=== PATIENT | male | born 1985 | race Caucasian/White ===

== ENCOUNTER 2022-02-04 07:22 | Outpatient (REF) | payer MEDICAID, SELFPAY ==
[2022-02-04 07:43] LABS: MANUAL DIFF FLAG NO
[2022-02-04 08:21] LABS: Basophils Percent Auto 0.3 % (0-2); Hematocrit 42.6 % (42.0-52.0); Hemoglobin 14.5 g/dl (14.0-18.0); Imm Gran Abs Auto 0.01 X10*3/uL (0.00-0.03); Imm Gran Pct Auto 0.3 % (0.0-0.4); Lymphocytes Absolute Auto 0.8 X10*3/uL (1.2-4.9); Mean Corpuscular Hemoglobin 27.8 pg (27.0-33.0); Mean Corpuscular Volume 81.8 fL (80.0-98.0); Mean Platelet Volume 10.8 fL (9.4-12.4); Monocytes Absolute Auto 0.4 X10*3/uL (0.1-1.2); Monocytes Percent Auto 13.7 % (2-11); Neutrophils Absolute Auto 1.7 x10*3/uL (2.0-8.3); Neutrophils Percent Auto 58.7 % (45-73); Platelet Count 175 X10*3/uL (160-400); Red Blood Count 5.21 X10*6/uL (4.60-5.80); Red Cell Distribution Width 12.4 % (11.0-16.0); White Blood Count 2.9 X10*3/uL (4.8-10.8)
[2022-02-04 08:43] LABS: Alanine Aminotransferase 22 U/L (0-40); Albumin Level 4.5 g/dL (3.5-5.0); Alkaline Phosphatase 78 U/L (39-117); Anion Gap 15 (12-20); Aspartate Amino Transferase 17 U/L (5-37); Bilirubin Total 0.4 mg/dL (0.0-1.0); Blood Urea Nitrogen 19 mg/dL (9-16); Calcium 9.5 mg/dL (8.4-10.2); Carbon Dioxide 23 mmol/L (22-29); Chloride 106 mmol/L (96-108); Estimated Glomerular Filt Rate > 60; Glucose Random 95 mg/dL (60-115); Potassium 3.7 mmol/L (3.3-5.1); Sodium 140 mmol/L (135-145); Total Protein 7.4 g/dL (6.5-8.0)
[2022-02-04 09:04] LABS: Thyroid Stimulating Hormone 0.88 uIU/mL (0.32-4.0)
[2022-02-04 09:15] LABS: Valproate 29.5 mcg/mL (50.0-100.0)
== END 2022-02-04 07:23 | disposition home or self-care (01) ==
LOC: HO.LAB 07:22
PROVIDERS: Visit Provider Nurse Practitioner Psychiatric/Mental Health
DX: F31.32 Bipolar disorder, current episode depressed, moderate (principal); Z79.899 Other long term (current) drug therapy
CPT/HCPCS: 36415; 80053; 80164; 84443; 85025

== ENCOUNTER 2022-02-10 13:10 | Outpatient (REF) | payer MEDICAID, SELFPAY ==
[2022-02-10 14:56] LABS: Alanine Aminotransferase 20 U/L (0-40); Albumin Level 4.6 g/dL (3.5-5.0); Alkaline Phosphatase 80 U/L (39-117); Anion Gap 15 (12-20); Aspartate Amino Transferase 17 U/L (5-37); Bilirubin Total 0.5 mg/dL (0.0-1.0); Blood Urea Nitrogen 18 mg/dL (9-16); Calcium 9.8 mg/dL (8.4-10.2); Carbon Dioxide 23 mmol/L (22-29); Chloride 105 mmol/L (96-108); Estimated Glomerular Filt Rate > 60; Glucose Random 90 mg/dL (60-115); Sodium 139 mmol/L (135-145); Total Protein 7.5 g/dL (6.5-8.0)
== END 2022-02-10 13:11 | disposition home or self-care (01) ==
LOC: HO.LAB 13:10
PROVIDERS: Visit Provider Nurse Practitioner Psychiatric/Mental Health
DX: F31.32 Bipolar disorder, current episode depressed, moderate (principal)
CPT/HCPCS: 36415; 80053; 84449

== ENCOUNTER 2022-02-11 13:54 | Outpatient (REF) | payer MEDICAID, SELFPAY ==
[2022-02-11 14:08] LABS: MANUAL DIFF FLAG NO
[2022-02-11 14:41] LABS: Hematocrit 40.2 % (42.0-52.0); Hemoglobin 14.3 g/dl (14.0-18.0); Imm Gran Abs Auto 0.02 X10*3/uL (0.00-0.03); Imm Gran Pct Auto 0.6 % (0.0-0.4); Lymphocytes Absolute Auto 0.7 X10*3/uL (1.2-4.9); Lymphocytes Percent Auto 20.8 % (20-40); Mean Corpuscular HGB Conc 35.6 g/dl (31.0-36.0); Mean Corpuscular Hemoglobin 29.1 pg (27.0-33.0); Mean Corpuscular Volume 81.9 fL (80.0-98.0); Monocytes Absolute Auto 0.4 X10*3/uL (0.1-1.2); Monocytes Percent Auto 10.4 % (2-11); Neutrophils Absolute Auto 2.4 x10*3/uL (2.0-8.3); Neutrophils Percent Auto 68.2 % (45-73); Platelet Count 192 X10*3/uL (160-400); Red Blood Count 4.91 X10*6/uL (4.60-5.80); Red Cell Distribution Width 12.5 % (11.0-16.0); White Blood Count 3.5 X10*3/uL (4.8-10.8)
== END 2022-02-11 13:55 | disposition home or self-care (01) ==
LOC: HO.LAB 13:54
PROVIDERS: Visit Provider Nurse Practitioner Psychiatric/Mental Health
DX: F31.32 Bipolar disorder, current episode depressed, moderate (principal)
CPT/HCPCS: 36415; 85025

== ENCOUNTER 2022-02-17 09:15 | Outpatient (RCR) | payer OTHER, SELFPAY ==
[2022-01-26 12:30] VITALS: BP 128/70; PULSE 88; TEMP 36.1
[2022-01-26 13:58] VITALS: BMI 30.4
[2022-01-26 15:57] LABS: Amphetamine Screen Urine Not Detected (Not Detect); Barbiturates, Urine Not Detected (Not Detect); Benzodiazepines Screen Urine Not Detected (Not Detect); Cannabinoid Screen Urine Not Detected (Not Detect); Cocaine Screen Urine Not Detected (Not Detect); Fentanyl, urine Not Detected (Not Detect); Opiate Screen Urine Not Detected (Not Detect); Phencyclidine Screen Urine Not Detected (Not Detect)
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
--- NOTE | 2022-01-29 08:10 | HO.PHPIOP ---
Case opened in treatment team
--- NOTE | 2022-01-29 09:57 | PC.NURSE ---
Alcon called out sick today. He reports he has been vomiting all night. I called Alcon to f/u. Alcon stated he has not vomited in several hours. He is resting today. I advised Alcon to call his doctor if symptoms do not improve and to drink fluids. He hopes to feel better by Tuesday and return to the program.
--- NOTE | 2022-02-02 15:52 | P.PNPSP_ITS ---
Subjective Subjective Date of Service: 02/02/22 Reason For Visit: bipolar,OCD,ADHD Medical Problems Affecting Mental Status: No Interim History: Reports overall mood is improving, although continues with some depression. Continues feeling some depression at bedtime, relates this to missing his partner. Continues with nightmares, feels prazosin not helping. Completed MD Q questionnaire regarding possibility of bipolar disorder. Has gained some coping skills while in this program, reports that he feels more self-confident. Medication Compliance: Yes Side effects from medications: No Review of Systems Acute medical concerns: No Medical Review of Systems: unchanged Review of Systems Review of Systems Yes all other systems are reviewed and are negative Constitutional: Reports no additional constitutional complaints Mental Status Exam Mental Status Exam Narrative: NAD. No AH/VH, no SI/HI. Patient Appearance: Appropriate Patient Orientation: Person, Place, Time and Situation Level of Consciousness: Appropriate Patient Behavior: Cooperative and Good Eye Contact Mood Description: Depressed Affect Description: Depressed and Anxious Patient Cognition Impaired: No Ability to Follow Directions: Good Speech Pattern: Appropriate Memory Description: Intact Hallucinations: None Delusions: Not Present Thought Process: Intact Thought Content: positive for Intact Depressive Symptoms: Increased Anxiety, Difficulty Sleeping, Loss of Int. in Activity, Feelings of Guilt, Increased Fatigue, Loss of Energy and Difficulty Concentrating Judgement: Fair Diagnostics Vital Signs (24Hr): BMI result Body Mass Index 30.4 Assessment & Plan Assessment & Plan (1) Bipolar disorder, current episode depressed, moderate: Status: Acute Code(s): F31.32 - Bipolar disorder, current episode depressed, moderate Assessment and Plan: Reports overall mood is improving, although continues with some depression. Continues feeling some depression at bedtime, relates this to missing his partner. Continues with nightmares, feels prazosin not helping. Discussed increasing dose, he was in agreement. Completed MDQ questionnaire regarding possibility of bipolar disorder. We discussed questionnaire in depth. Discussed obtaining Depakote level. Discussed increasing either Depakote or risperidone to help with mood stabilization. Has gained some coping skills while in this program, reports that he feels more self-confident. (2) Opioid use disorder, severe, in sustained remission: Status: Acute Code(s): F11.21 - Opioid dependence, in remission Assessment and Plan: Continues in recovery, no concerns. (3) Mixed obsessional thoughts and acts: Status: Acute Code(s): F42.2 - Mixed obsessional thoughts and acts Assessment and Plan: Continues with obsessional thoughts at times, has been experiencing frequent nightmares where either his fiancee dies or he dies. Plan 1. Continue with current [facility] plan of care. 2. Increase prazosin to 2 mg at bedtime. 3. Labs ordered. 4. Follow-up as per protocol. Patient educated on: diagnosis, medication risk/benefits and therapeutic strategies Informed Consent: understands Reason for contiued partial hosp. stay Substantial Risk for: inability to function, rapid decompensation and med/psych decompensation Certification I certify that partial hospital treatment is medically necessary due to the symptoms and problems resulting from the patient's mental illness and the failure to treat the patient at the partial hospital level of care would likely result in the patient requiring inpatient psychiatric care which could not be prevented at a less intensive level of care. I spent minutes with the patient and/or on the patient floor today, greater than?50% of which was spent counseling/coordinating care. Discharge Plan Discharge Attending provider: Heriberto Jones Medications: New prazosin 2 mg capsule 2 mg PO BEDTIME Qty: 7 0RF Discontinued prazosin 1 mg Capsule 1 mg PO BEDTIME No Action divalproex [Depakote] 250 mg Tablet,Delayed Release (Dr/Ec) 250 mg PO BID clonidine HCl 0.2 mg Tablet 0.2 mg PO BEDTIME buspirone [BuSpar] 30 mg Tablet 30 mg PO BID sertraline [Zoloft] 50 mg Tablet 50 mg PO DAILY risperidone [Risperdal] 1 mg Tablet 0.5 mg PO DAILY Rx Instructions: Take a 1/2 tab in the morning and 1 tab at bedtime. risperidone [Risperdal] 1 mg Tablet 1 mg PO BEDTIME bupropion HCl [Wellbutrin SR] 200 mg Tablet Sustained-Release 12 Hr 200 mg PO DAILY duloxetine [Cymbalta] 20 mg Capsule,Delayed Release(Dr/Ec) 20 mg PO DAILY
--- NOTE | 2022-02-04 13:20 | PC.NURSE ---
Lab results faxed to patient's new PCP XAVIER Gomez and his prescriber Portillo Marie to review and f/u with patient if needed. WBC 2.9, [place] pct auto 13.7, Anc neut 1.7, lympth 0.8, Bun 19, and Depakote level 29.5. PHP prescriber Thania Cavazos CNP discussed lab results with patient. Patient aware lab results will be sent to his providers. Copy of lab results given to patient.
--- NOTE | 2022-02-08 09:42 | HO.PHPIOP ---
The client called out sick. He states that he will be in tomorrow
--- NOTE | 2022-02-10 11:28 | PC.NURSE ---
Repeat labs ordered. Patient aware.
--- NOTE | 2022-02-11 09:42 | PC.NURSE ---
Patient completed repeat lab orders ordered on 02/09/22 on 02/10/22. Reviewed Labs that were ordered with Iris at [facility] lab. CBC ordered but not completed, General chemistry completed. Thania Cavazos NP aware.
--- NOTE | 2022-02-12 09:37 | PC.NURSE ---
I called Alcon's PCP's office at [facility] for the past several days and several times during the day (at times on hold for over 45 minutes) to f/u on the lab results I faxed to the office on 02/04/22. Unable to get a hold of anyone in the office as I have been put on hold and no one is answering the phone. I spoke to Alcon and he stated it is hard to get a hold of anyone in the office. I am currently on hold at present with [facility] awaiting for someone to answer the phone.
--- NOTE | 2022-02-12 09:58 | PC.NURSE ---
Alcon called and left a message he is not feeling well and will not be coming in to the program today. I called Alcon and left him a message to call me back to f/u.
--- NOTE | 2022-02-12 10:23 | PC.NURSE ---
Faxed repeat lab results done on 02/10-02/11/22 to patient's new PCP XAVIER Gomez. WBC 3.5, HCT 40.2, IMgran pct auto 0.6, Lymph abs auto 0.7, BUN 18.
--- NOTE | 2022-02-12 12:49 | PC.NURSE ---
Alcon called me back and left a message that he had a family emergency, his grandmother had a stroke and he was not able to make it to the program. Plans on being at [facility] on Tuesday.
--- NOTE | 2022-02-17 11:02 | PC.NURSE ---
Spoke to Jocelyne at patient's PCP's office at [facility]. They have received Alcon's lab results faxed to their office on 02/12/22 and 02/17/22 and the need to f/u with the patient if necessary based on the results.
--- NOTE | 2022-02-17 13:19 | HO.PHPPROGNO ---
Subjective Subjective Date of Service: 02/17/22 Reason For Visit: bipolar,OCD,ADHD Medical Problems Affecting Mental Status: No Interim History: Patient describes mood as ?okay, not really depressed ?. Reports woke up with mild anxiety this morning, states it is getting worse as the day goes on. Attributes this to concerns about not being able to see his son tomorrow on the holiday. Also attributes anxiety about lack of structure going forward, will miss the daily program. Reports prazosin has eliminated nightmares. No SI/HI, feels safe. Reports that he feels stable for discharge from [facility] at this time. Medication Compliance: Yes Attending Groups: Yes Review of Systems Acute medical concerns: No Medical Review of Systems: unchanged Review of Systems Review of Systems Yes all other systems are reviewed and are negative Constitutional: Reports no additional constitutional complaints Mental Status Exam Mental Status Exam Narrative: NAD. No AH/VH, no SI/HI. Patient Appearance: Appropriate Patient Orientation: Person, Place, Time and Situation Level of Consciousness: Appropriate Patient Behavior: Appropriate, Cooperative and Good Eye Contact Mood Description: Appropriate Affect Description: Anxious Patient Cognition Impaired: No Ability to Follow Directions: Excellent Speech Pattern: Appropriate Memory Description: Intact Hallucinations: None Delusions: Not Present Thought Process: Intact Thought Content: positive for Intact Depressive Symptoms: Increased Anxiety Judgement: Good Diagnostics Vital Signs (24Hr): BMI result Body Mass Index 30.4 Assessment & Plan Assessment & Plan (1) Bipolar disorder, current episode depressed, moderate: Status: Acute Code(s): F31.32 - Bipolar disorder, current episode depressed, moderate Assessment and Plan: Patient describes mood as ?okay, not really depressed ?. Reports woke up with mild anxiety this morning, states it is getting worse as the day goes on. Attributes this to concerns about not being able to see his son tomorrow on the holiday. We discussed his plans for weekend. He will be with his father and father's girlfriend. Also attributes anxiety about lack of structure going forward. Discussed ways to add more structure to his days. Reports prazosin has eliminated nightmares. Satisfied with current medication regimen. Saw his psychiatric provider on Tuesday. No refills of any medications needed at this time. No SI/HI, feels safe. Reports that he feels stable for discharge from [facility] at this time. (2) Mixed obsessional thoughts and acts: Status: Acute Code(s): F42.2 - Mixed obsessional thoughts and acts Assessment and Plan: Reports some improvement. Utilizing coping skills learned in this program to help alleviate these. (3) Opioid use disorder, severe, in sustained remission: Status: Acute Code(s): F11.21 - Opioid dependence, in remission Assessment and Plan: no concerns Plan 1. Patient appears stable for discharge from [facility] at this time. 2. Patient to follow-up with outpatient providers going forward. Patient educated on: diagnosis, medication risk/benefits and therapeutic strategies Informed Consent: understands Reason for contiued partial hosp. stay Substantial Risk for: stable for discharge Certification I certify that partial hospital treatment is medically necessary due to the symptoms and problems resulting from the patient's mental illness and the failure to treat the patient at the partial hospital level of care would likely result in the patient requiring inpatient psychiatric care which could not be prevented at a less intensive level of care. I spent minutes with the patient and/or on the patient floor today, greater than?50% of which was spent counseling/coordinating care. Discharge Plan Discharge Attending provider: Heriberto Jones Additional Instructions: Fozia Sims [facility] 02/17 , Portillo Sun NP 03/15/22 Medications: New prazosin 2 mg capsule 2 mg PO BEDTIME Qty: 7 0RF Discontinued prazosin 1 mg Capsule 1 mg PO BEDTIME No Action divalproex [Depakote] 250 mg Tablet,Delayed Release (Dr/Ec) 250 mg PO BID clonidine HCl 0.2 mg Tablet 0.2 mg PO BEDTIME buspirone [BuSpar] 30 mg Tablet 30 mg PO BID sertraline [Zoloft] 50 mg Tablet 50 mg PO DAILY risperidone [Risperdal] 1 mg Tablet 0.5 mg PO DAILY Rx Instructions: Take a 1/2 tab in the morning and 1 tab at bedtime. risperidone [Risperdal] 1 mg Tablet 1 mg PO BEDTIME bupropion HCl [Wellbutrin SR] 200 mg Tablet Sustained-Release 12 Hr 200 mg PO DAILY duloxetine [Cymbalta] 20 mg Capsule,Delayed Release(Dr/Ec) 20 mg PO DAILY Stand Alone Forms: Patient Portal Discharge page Patient Education: Bipolar Disorder (DC), Cannabis Abuse (DC)
--- NOTE | 2022-02-25 09:37 | PC.NURSE ---
Ja called from patient's PCP's office at [facility] and requested a call back. I spoke to Ja who stated she could not find the lab results. I told her I spoke to Jocelyne on 02/17/22 who confirmed the results were scanned into their system. Ja looked in the system and stated she could see the results in the system and XAVIER Gomez must have missed them. She plans on following up with patient's PCP Vickie Brantley to review Alcon's results and the need to f/u with Alcon based on the results.
== END 2022-02-17 23:59 | disposition home or self-care (01) ==
LOC: HO.PHPA 09:15
PROVIDERS: Nurse Practitioner Psychiatric/Mental Health; Visit Provider Psychiatry & Neurology Psychiatry
DX: F31.32 Bipolar disorder, current episode depressed, moderate (principal); F42.2 Mixed obsessional thoughts and acts; F11.21 Opioid dependence, in remission; Z79.899 Other long term (current) drug therapy
CPT/HCPCS: 80307; 90792; 90853